=== PATIENT | male | born 1960 | race Two or more races ===

== ENCOUNTER 2022-01-27 09:12 | Inpatient (IN) | payer OTHER, MEDICAID ==
[~2022-01-27] VITALS: Ht 167.6 cm; Wt 137.6 kg
[2022-01-27] VITALS (30 sets, daily range): BP systolic 61–114; BP diastolic 17–81
[~2022-01-27 09:12] MED LIST: SODIUM CHLORIDE 0.9% 10ML VIAL ONE; SUCCINYLCHOLINE CHLORIDE 200MG/10ML IV ONE; VECURONIUM BROMIDE 10 MG/VIAL IV ONE
[2022-01-27] MEDS ORDERED: clotrimazole (09:29)
[2022-01-27] MEDS ORDERED: DICL100G31 TP (09:29)
[2022-01-27] MEDS ORDERED: OMEP20CA14 PO (09:29)
[2022-01-27] MEDS ORDERED: ROSU20TA2 PO (09:29)
[2022-01-27] MEDS ORDERED: PROP10TA10 PO (09:29)
[2022-01-27] MEDS ORDERED: GLIP1TAB5 PO (09:29)
[2022-01-27] MEDS ORDERED: FURO40TA5 PO (09:29)
[2022-01-27] MEDS ORDERED: SILD20TA PO (09:29)
[2022-01-27] MEDS ORDERED: SODIUM CHLORIDE 0.9% 1000ML BAG (SEPSIS BOLUS) IV ONE (09:45)
[2022-01-27 10:09] LABS: HEMATOCRIT. 35.6 % (42.0-52.0); HEMOGLOBIN. 12.7 g/dL (14.0-18.0); MEAN CORPUSCULAR HEMOGLOBIN 39.2 pg (28.0-32.0); MEAN CORPUSCULAR VOLUME 110.2 fL (80.0-94.0); MEAN PLATELET VOLUME 7.8 fl (7.4-10.4); PLATELET 121 x1000/uL (130-400); RED BLOOD CELL COUNT 3.23 mill/uL (4.7-6.1); RED CELL DISTRIBUTION WIDTH 16.7 % (11.6-14.6)
[2022-01-27 10:13] LABS: CHLORIDE 95 mEq/L (98-107)
[2022-01-27] MEDS ORDERED: FUROSEMIDE 40MG/4ML VIAL IVP ONE (10:30)
[2022-01-27] MEDS ORDERED: NOREPINEPHRINE 8MG/250ML PMX 250 ML IV ONE ×3 (11:15→15:30)
[2022-01-27 11:23] LABS: CLARITY URINE CLEAR (CLEAR); COLOR URINE DARK YELLOW (YELLOW); KETONES URINE TRACE (NEGATIVE); LEUKOCYTE ESTERASE URINE 1+ (NEGATIVE); NITRITE URINE POSITIVE (NEGATIVE); OCCULT BLOOD URINE NEGATIVE (NEGATIVE); PH URINE 8.5 (4.5-8.0); PROTEIN URINE TRACE (NEGATIVE); SPECIFIC GRAVITY URINE 1.022 (1.005-1.030); UROBILINOGEN URINE >8.0 E.U./dL (0.2-1.0)
[2022-01-27] MEDS ORDERED: LACTULOSE 20G/30ML UDC PO ONE (11:45)
[2022-01-27] MEDS ORDERED: ETOMIDATE 2MG/ML 10ML VIAL IV ONE (11:45)
[2022-01-27] MEDS ORDERED: MIDAZOLAM HCL 2 MG/2 ML VIAL IV ONE (11:45)
[2022-01-27] MEDS ORDERED: SUCCINYLCHOLINE CHLORIDE 200MG/10ML IV ONE (11:45)
[2022-01-27] MEDS ORDERED: MIDAZOLAM HCL 100 MG in DEXT 5% WATER 80 ML IV ONE (11:45)
[2022-01-27] MEDS ORDERED: MIDAZOLAM 100MG/100ML PMX 80 ML IV NR (11:49)
[2022-01-27 12:01] LABS: INR 2.1; PROTHROMBIN TIME 21.4 sec (9.6-11.0)
[2022-01-27 12:19] LABS: NUCLEATED RED BLOOD CELLS 1 /100 WBC; PLATELET ESTIMATE SLIGHTLY DECREASED
[2022-01-27] MEDS ORDERED: ACETAMINOPHEN 650MG SUPP PR ONE (12:30)
[2022-01-27] MEDS ORDERED: LACTULOSE 20G/30ML UDC PO NR (13:30)
[2022-01-27] MEDS ORDERED: PHENYLEPHRINE 100 MG in DEXT 5% WATER 240 ML IV PRN (14:30)
[2022-01-27] MEDS ORDERED: MAGNESIUM/ALUMINUM HYDROXIDE/SIMETHICONE 30ML UDC PO PRN (14:45)
[2022-01-27] MEDS ORDERED: ACETAMINOPHEN 325MG TABLET PO PRN ×2 (14:45)
[2022-01-27] MEDS ORDERED: HYDROCODONE/ACETAMINOPHEN 5/325MG TABLET PO PRN (14:45)
[2022-01-27] MEDS ORDERED: ONDANSETRON HCL 4MG/2ML INJ IV PRN (14:45)
[2022-01-27] MEDS ORDERED: HYDRALAZINE 20MG/ML VIAL IV PRN (14:45)
[2022-01-27] MEDS ORDERED: VASOPRESSIN 20 UNIT in SODIUM CHLORIDE 0.9% 99 ML IV PRN (14:45)
[2022-01-27] MEDS ORDERED: IPRATROPIUM/ALBUTEROL 0.5-3(2.5)MG/3ML NEB NEB PRN (14:45)
[2022-01-27] MEDS ORDERED: NOREPINEPHRINE 32 MG in DEXT 5% WATER 218 ML IV PRN ×2 (14:45→15:15)
[2022-01-27] MEDS ORDERED: PANTOPRAZOLE SODIUM 40 MG/VIAL IV SCH (15:00)
[2022-01-27] MEDS: PHENYLEPHRINE 100 MG in DEXT 5% WATER 240 ML IV PRN ×3 (15:00→22:30)
[2022-01-27 15:15] LABS: INR 1.7; PROTHROMBIN TIME 17.2 sec (9.6-11.0)
[2022-01-27] MEDS ORDERED: NOREPINEPHRINE 8MG/250ML PMX 250 ML IV NR (15:45)
[2022-01-27] MEDS ORDERED: PIPERACILLIN/TAZOBACTAM 3.375 G in DEXTROSE 5% WATER 50 ML IV NR (16:00)
[2022-01-27] MEDS ORDERED: AZITHROMYCIN 500MG/250ML 250 ML IV NR (16:00)
[2022-01-27 16:16] LABS: BG BASE EXCESS -0.7 mmol/L (-2.0-2.0); BG CARBOXYHEMOGLOBIN 0.8 % (0.5-1.5); BG DEOXYHEMOGLOBIN 3.5 % (0.0-5.0); BG FRACTION INSPIRED OXYGEN 80; BG HCO3 ACT 21.8 mmol/L (22.0-26.0); BG METHEMOGLOBIN 0.2 % (0.0-1.5); BG OXYGEN SATURATION 96.5 % (92.0-98.5); BG OXYHEMOGLOBIN 95.5 % (94.0-97.0); BG PCO2 29.9 mmHg (35.0-45.0); BG PH 7.481 (7.350-7.450); BG PO2 82.1 mmHg (75.0-100.0); BG SAMPLE SITE RIGHT RADIAL; BG VENT MODE VENT - AC
[2022-01-27] MEDS ORDERED: NOREPINEPHRINE 8MG/250ML PMX 250 ML IV PRN (17:00)
[2022-01-27] MEDS ORDERED: MIDAZOLAM HCL 100 MG in SODIUM CHLORIDE 0.9% 80 ML IV PRN (18:00)
[2022-01-27] MEDS ORDERED: FENTANYL 2500MCG/250ML PMX 250 ML IV PRN (18:15)
[2022-01-27] MEDS: VASOPRESSIN 20 UNIT in SODIUM CHLORIDE 0.9% 99 ML IV PRN (18:47)
[2022-01-27] MEDS: NOREPINEPHRINE 32 MG in DEXT 5% WATER 218 ML IV PRN ×2 (18:48→22:31)
[2022-01-27 20:19] LABS: HEMATOCRIT. 29.6 % (42.0-52.0); HEMOGLOBIN. 10.5 g/dL (14.0-18.0); MEAN CORPUSCULAR HEMOGLOBIN 39.7 pg (28.0-32.0); MEAN CORPUSCULAR VOLUME 112.1 fL (80.0-94.0); MEAN PLATELET VOLUME 7.6 fl (7.4-10.4); PLATELET 108 x1000/uL (130-400); RED BLOOD CELL COUNT 2.64 mill/uL (4.7-6.1); RED CELL DISTRIBUTION WIDTH 17.5 % (11.6-14.6)
[2022-01-27] MEDS ORDERED: DEXTROSE 50% WATER 50ML SYRINGE IV PRN (20:45)
[2022-01-27] MEDS ORDERED: INSULIN LISPRO 100 UNITS/ML SUBCUT SCH (21:00)
[2022-01-27] MEDS ORDERED: NALOXONE HCL 0.4MG/ML VIAL IV PRN (21:00)
[2022-01-27] MEDS: DEXTROSE 50% WATER 50ML SYRINGE IV PRN (21:03)
[2022-01-27] MEDS ORDERED: DEXTROSE 50% WATER 50ML SYRINGE IV ONE (21:04)
[2022-01-27] MEDS ORDERED: DEXTROSE 50% WATER 50ML SYRINGE IV NR (21:15)
[2022-01-27] MEDS ORDERED: SODIUM CHLORIDE 0.9% 250 ML IV NR (21:20)
[2022-01-27] MEDS: PANTOPRAZOLE SODIUM 40 MG/VIAL IV SCH (21:23)
[2022-01-27 21:30] LABS: PLATELET ESTIMATE DECREASED
[2022-01-27 21:45] LABS: TOTAL IRON BINDING CAPACITY 156 ug/dL (250-450)
[2022-01-27] MEDS ORDERED: SODIUM BICARBONATE 200 MEQ in DEXTROSE 5% WATER 1,000 ML IV SCH (21:45)
[2022-01-27 22:10] LABS: VITAMIN B12 SERUM >2000 pg/mL pg/mL (211-911)
[2022-01-27 22:13] LABS: FERRITIN 397 ng/mL (22-322)
[2022-01-27 22:24] LABS: HEPATITIS B SURFACE ANTIGEN NEGATIVE
[2022-01-28] VITALS (77 sets, daily range): BP systolic 63–180; BP diastolic 28–145
[2022-01-28] MEDS: LACTULOSE 20G/30ML UDC PO SCH ×3 (01:08→13:07)
[2022-01-28] MEDS: DEXTROSE 50% WATER 50ML SYRINGE IV PRN (01:09)
[2022-01-28] MEDS ORDERED: DEXTROSE 50% WATER 50ML SYRINGE IV SCH (01:15)
[2022-01-28] MEDS: PHENYLEPHRINE 100 MG in DEXT 5% WATER 240 ML IV PRN ×3 (01:30→08:47)
[2022-01-28] MEDS: VASOPRESSIN 20 UNIT in SODIUM CHLORIDE 0.9% 99 ML IV PRN ×2 (01:31→08:50)
[2022-01-28] MEDS: NOREPINEPHRINE 32 MG in DEXT 5% WATER 218 ML IV PRN ×4 (01:59→13:07)
[2022-01-28] MEDS ORDERED: DEXT 10% WATER 1,000 ML IV SCH (02:00)
[2022-01-28] MEDS: BLOOD SUGAR DIAGNOSTIC STRIP TEST SCH ×3 (05:42→17:49)
[2022-01-28] MEDS: INSULIN LISPRO 100 UNITS/ML SUBCUT SCH ×4 (05:53→17:49)
[2022-01-28 06:10] LABS: BASOPHILS % 0.1 % (0.0-2.0); EOSINOPHILS % 0.5 % (0.0-5.0); HEMATOCRIT. 30.1 % (42.0-52.0); HEMOGLOBIN. 10.6 g/dL (14.0-18.0); LYMPHOCYTES % 23.3 % (20.0-50.0); MEAN CORPUSCULAR HEMOGLOBIN 40.3 pg (28.0-32.0); MEAN CORPUSCULAR VOLUME 114.3 fL (80.0-94.0); MONOCYTES % 8.1 % (2.0-8.0); RED BLOOD CELL COUNT 2.63 mill/uL (4.7-6.1)
[2022-01-28 06:32] LABS: PHOSPHORUS 4.1 mg/dL (2.5-4.9)
[2022-01-28 06:45] LABS: INR 2.1; PROTHROMBIN TIME 21.7 sec (9.6-11.0)
[2022-01-28] MEDS ORDERED: BLOOD SUGAR DIAGNOSTIC STRIP TEST SCH ×2 (07:50)
[2022-01-28 08:42] LABS: BG BASE EXCESS -6.6 mmol/L (-2.0-2.0); BG CARBOXYHEMOGLOBIN 0.3 % (0.5-1.5); BG DEOXYHEMOGLOBIN 2.1 % (0.0-5.0); BG FRACTION INSPIRED OXYGEN 80; BG HCO3 ACT 17.6 mmol/L (22.0-26.0); BG METHEMOGLOBIN 0.3 % (0.0-1.5); BG OXYGEN SATURATION 97.9 % (92.0-98.5); BG OXYHEMOGLOBIN 97.3 % (94.0-97.0); BG PCO2 30.9 mmHg (35.0-45.0); BG PH 7.373 (7.350-7.450); BG PO2 102.6 mmHg (75.0-100.0); BG SAMPLE SITE LEFT RADIAL; BG TOTAL HEMOGLOBIN 11.6 g/dL (12.0-18.0); BG VENT MODE VENT - AC
[2022-01-28] MEDS: PANTOPRAZOLE SODIUM 40 MG/VIAL IV SCH (08:46)
[2022-01-28] MEDS ORDERED: PANTOPRAZOLE SODIUM 40 MG/VIAL IV SCH (09:00)
[2022-01-28] MEDS ORDERED: MAGNESIUM 2 G PREMIX 50 ML IV NR (10:00)
[2022-01-28 10:16] LABS: MEAN PLATELET VOLUME 8.2 fl (7.4-10.4)
[2022-01-28 10:17] LABS: PLATELET 96 x1000/uL (130-400)
[2022-01-28] MEDS ORDERED: VANCOMYCIN 1,750 MG in DEXT 5% WATER 500 ML IV NR (14:00)
[2022-01-28] MEDS ORDERED: PIPERACILLIN/TAZOBACTAM 3.375G in DEXT 5% WATER 50ML IV SCH ×2 (14:00→18:00)
[2022-01-28] MEDS ORDERED: PIPERACILLIN/TAZOBACTAM 3.375GM/50ML PREMIX IV SCH (14:00)
[2022-01-28] MEDS: MORPHINE SULFATE 250 MG in DEXT 5% WATER 250 ML IV PRN ×2 (15:15→22:30)
[2022-01-28 16:50] LABS: CREATINE KINASE 1909 IU/L (39-308)
[2022-01-28] MEDS: IPRATROPIUM/ALBUTEROL 0.5-3(2.5)MG/3ML NEB HHN SCH (20:31)
[2022-01-29] VITALS (9 sets, daily range): BP systolic 51–76; BP diastolic 17–38
[2022-01-29] MEDS: IPRATROPIUM/ALBUTEROL 0.5-3(2.5)MG/3ML NEB HHN SCH ×3 (01:15→21:06)
[2022-01-29 07:55] LABS: BG BASE EXCESS -6.8 mmol/L (-2.0-2.0); BG CARBOXYHEMOGLOBIN 0.4 % (0.5-1.5); BG DEOXYHEMOGLOBIN 5.3 % (0.0-5.0); BG HCO3 ACT 25.2 mmol/L (22.0-26.0); BG METHEMOGLOBIN 0.2 % (0.0-1.5); BG OXYGEN SATURATION 94.7 % (92.0-98.5); BG OXYHEMOGLOBIN 94.1 % (94.0-97.0); BG PH 7.046 (7.350-7.450); BG SAMPLE SITE RIGHT RADIAL; BG TOTAL HEMOGLOBIN 11.5 g/dL (12.0-18.0); BG VENT MODE MASK - NRB
[2022-01-29 09:37] LABS: HEMATOCRIT. 29.2 % (42.0-52.0); HEMOGLOBIN. 9.9 g/dL (14.0-18.0); MEAN CORPUSCULAR HEMOGLOBIN 39.2 pg (28.0-32.0); MEAN CORPUSCULAR VOLUME 115.7 fL (80.0-94.0); RED BLOOD CELL COUNT 2.52 mill/uL (4.7-6.1); RED CELL DISTRIBUTION WIDTH 18.2 % (11.6-14.6)
[2022-01-29 09:45] LABS: CHLORIDE 97 mEq/L (98-107)
[2022-01-29 09:47] LABS: INR 2.6; PROTHROMBIN TIME 25.8 sec (9.6-11.0)
[2022-01-29 09:53] LABS: PHOSPHORUS 7.9 mg/dL (2.5-4.9)
[2022-01-29 10:16] LABS: PLATELET ESTIMATE DECREASED
[2022-01-29 10:17] LABS: MEAN PLATELET VOLUME 8.2 fl (7.4-10.4)
[2022-01-29 10:18] LABS: PLATELET 91 x1000/uL (130-400)
== END 2022-01-30 01:36 | DRG 871 ==
LOC: ER 09:15 → EDBEDREQSVC 11:58 → EDBEDREQTM 11:58 → EDBEDREQ 11:58 → SUPCPDRO 14:36 → EDBEDREQTM 14:46 → EDBEDREQ 14:46 → CVICU 16:22 → 8WST 01-29 02:26
PROVIDERS: ADMIT Internal Medicine; ATTEND Internal Medicine
PROC: 5A1945Z Respiratory Ventilation, 24-96 Consecutive Hours (ICD-10-PCS; principal; 2022-01-27)
PROC: 0BH18EZ Insertion of Endotracheal Airway into Trachea, Via Natural or Artificial Opening Endoscopic (ICD-10-PCS; 2022-01-27)
DX: A41.9 Sepsis, unspecified organism (principal); E43 Unspecified severe protein-calorie malnutrition; J96.01 Acute respiratory failure with hypoxia; R65.21 Severe sepsis with septic shock; E87.1 Hypo-osmolality and hyponatremia; N17.9 Acute kidney failure, unspecified; N39.0 Urinary tract infection, site not specified; Z68.42 Body mass index [BMI] 45.0-49.9, adult; D68.9 Coagulation defect, unspecified; D53.9 Nutritional anemia, unspecified; D69.6 Thrombocytopenia, unspecified; E11.9 Type 2 diabetes mellitus without complications; E66.01 Morbid (severe) obesity due to excess calories; E78.5 Hyperlipidemia, unspecified; E87.5 Hyperkalemia; K70.31 Alcoholic cirrhosis of liver with ascites; Z66 Do not resuscitate; K70.40 Alcoholic hepatic failure without coma; Z20.822 Contact with and (suspected) exposure to COVID-19; E78.00 Pure hypercholesterolemia, unspecified; E83.42 Hypomagnesemia; N49.2 Inflammatory disorders of scrotum; Z79.899 Other long term (current) drug therapy; Z51.5 Encounter for palliative care
CPT/HCPCS: 36415; 36600; 71045; 80048; 80053; 80076; 80202; 81003; 82140; 82248; 82375; 82550; 82607; 82728; 82746; 82805; 82962; 83036; 83540; 83550; 83605; 83735; 83880; 84100; 84145; 84484; 85025; 85044; 86705; 86709; 86803; 87070; 87077; 87340; 87426; 93005; 93306; 93970; 94002; 94003; 94640; 99291; C9113; J0330; J0456; J1940; J2250; J2270; J2370; J2543; J3010; J3370; J3475; J3490; J7030; J7050; J7060; J7070; A4315